=== PATIENT | female | born 2000 | race African-American/Black ===

== ENCOUNTER 2020-07-10 14:53 | Emergency (ER) | payer SELFPAY ==
[~2020-07-10] VITALS: Ht 157.5 cm; Wt 104.0 kg
[2020-07-10 15:52] LABS: BASOPHILS % 0.7 % (0.0-2.0); EOSINOPHILS % 1.9 % (0.0-5.0); HEMATOCRIT. 39.6 % (36.0-48.0); HEMOGLOBIN. 13.1 g/dL (12.0-16.0); LYMPHOCYTES % 15.6 % (20.0-50.0); MEAN CORPUSCULAR HEMOGLOBIN 26.9 pg (28.0-32.0); MEAN CORPUSCULAR VOLUME 81.2 fL (81.0-99.0); MEAN PLATELET VOLUME 8.6 fl (7.4-10.4); MONOCYTES % 8.3 % (2.0-8.0); NEUTROPHILS % 73.5 % (40.0-76.0); PLATELET 229 x1000/uL (130-400); RED BLOOD CELL COUNT 4.87 mill/uL (4.2-5.4); RED CELL DISTRIBUTION WIDTH 12.7 % (11.6-14.6)
[2020-07-10 15:56] LABS: CHLORIDE 109 mEq/L (98-107)
[2020-07-10 15:59] LABS: HCG SCREEN NEGATIVE
[2020-07-10] MEDS ORDERED: IBUPROFEN 600MG TABLET PO ONE (16:15)
[2020-07-10] MEDS ORDERED: ACETAMINOPHEN 325MG TABLET PO ONE (16:15)
[2020-07-10 16:43] VITALS: BP 123/69
[2020-07-10] MEDS ORDERED: IBUP-2029 MT (17:10)
== END 2020-07-10 17:33 | disposition home or self-care (01) ==
LOC: ER 14:53
DX: J03.90 Acute tonsillitis, unspecified (principal)
CPT/HCPCS: 36415; 80048; 84703; 85025; 87070; 87430; 93005; 99284; Z7610

== ENCOUNTER 2023-09-20 05:35 | Emergency (ER) | payer OTHER ==
[~2023-09-20] VITALS: Ht 170.2 cm; Wt 95.0 kg
[~2023-09-20 05:35] MED LIST: IBUP-2029 MT
[2023-09-20 05:40] VITALS: O2SAT 100
[2023-09-20 08:21] LABS: HEMATOCRIT. 40.4 % (36.0-48.0); HEMOGLOBIN. 13.1 g/dL (12.0-16.0); MEAN CORPUSCULAR HEMOGLOBIN 27.4 pg (28.0-32.0); MEAN CORPUSCULAR HGB CONC 32.5 g/dL (31.0-37.0); MEAN CORPUSCULAR VOLUME 84.1 fL (81.0-99.0); MEAN PLATELET VOLUME 8.7 fl (7.4-10.4); PLATELET 210 x1000/uL (130-400); RED CELL DISTRIBUTION WIDTH 13.3 % (11.6-14.6); WHITE BLOOD COUNT 8.8 x1000/uL (4.5-11.0)
[2023-09-20 08:27] LABS: CHLORIDE 107 mEq/L (98-107); POTASSIUM 3.7 mEq/L (3.5-5.1); SODIUM 139 mEq/L (136-145)
[2023-09-20 08:28] LABS: CALCIUM 9.2 mg/dL (8.7-10.4); CARBON DIOXIDE 23 mEq/L (21-32)
[2023-09-20 08:30] LABS: DIFFERENTIAL COMMENT 1
[2023-09-20 08:33] LABS: CREATININE 0.9 mg/dL (0.6-1.0); GLUCOSE 125 mg/dL (70-105); UREA NITROGEN BLOOD 14 mg/dL (9-23)
[2023-09-20 08:35] LABS: ALANINE AMINOTRANSFERASE 14 IU/L (10-49); ALBUMIN 4.1 g/dL (3.2-4.8); ASPARTATE AMINOTRANSFERASE 15 IU/L (<34); BILIRUBIN DIRECT 0.4 mg/dL (<=3.0); BILIRUBIN TOTAL 1.1 mg/dL (0.1-1.0); PROTEIN TOTAL 7.4 g/dL (6.0-8.3)
[2023-09-20 09:04] LABS: PLATELET ESTIMATE NORMAL
[2023-09-20 11:21] LABS: HCG SCREEN NEGATIVE
[2023-09-20] MEDS: SODIUM CHLORIDE 0.9% 1,000 ML IV ONE (13:21)
[2023-09-20] MEDS: ONDANSETRON HCL 4MG/2ML INJ IV NR (13:22)
[2023-09-20] MEDS: KETOROLAC 30MG/ML VIAL IV NR (13:22)
[2023-09-20] MEDS: FAMOTIDINE 20MG/2ML VIAL IV NR (13:29)
[2023-09-20] MEDS: ONDANSETRON 4MG ODT PO ONE (14:00)
[2023-09-20] MEDS ORDERED: ONDA4TAB11 PO (15:36)
[2023-09-20 16:22] VITALS: BP 145/90; PULSE 80; RESP 15; TEMP 98.1
== END 2023-09-20 16:21 | disposition home or self-care (01) ==
LOC: ER 05:35
DX: K52.9 Noninfective gastroenteritis and colitis, unspecified (principal); E86.0 Dehydration
CPT/HCPCS: 80076; 80048; 84703; 83690; 85025; 36415; 96361; 96374; 96375; 99284; J3490; J1885; J2405; Z7610 ×2; C1893